=== PATIENT | male | born 1960 | race Caucasian/White ===

== ENCOUNTER 2019-02-08 07:33 | Day surgery (SDC) | payer OTHER ==
[2019-02-08] MEDS ORDERED: PROPOFOL 200 MG/20 ML VIAL IV ONE (08:48)
[2019-02-08] MEDS ORDERED: LACTATED RINGERS 1,000 ML IV.SOLN IV ONE (08:48)
[2019-02-08] MEDS ORDERED: LIDOCAINE HCL 2% PF 100MG/5ML VIAL IJ ONE (08:48)
--- NOTE | 2019-02-18 13:03 | GI Report ---
OPERATIVE/PROCEDURE REPORT PATIENT NAME: LIMA GIFFORD DATE OF : 1960 CHART#: [id number] DATE OF PROCEDURE: 02/08/2019 REFERRING PHYSICIAN: Kaden Olson M.D. PROCEDURE PERFORMED: Surveillance colonoscopy. SURGEON: Livia Fleming M.D., JohnCBevPBev INDICATION FOR PROCEDURE: Surveillance colonoscopy. Previous polyps greater than 5 years ago. PROCEDURE MEDICATION: Propofol, as per Anesthesia. DESCRIPTION OF PROCEDURE: The Olympus video colonoscope was advanced into the rectum and slowly advanced all the way to the cecum. The appendiceal orifice, terminal ileum were normal. On slow withdrawal the cecum, ascending colon, transverse colon, no obvious intraluminal lesions were noted except when one got back to 75 cm in the distal transverse colon a 6 mm polyp was removed with electrocautery. The specimen was sent for pathology. There was no bleeding postpolypectomy and the polyp appeared to be completely removed. The remaining part of the descending colon and sigmoid no obvious intraluminal lesions were noted. Retroflexion in the rectum was normal. FINDINGS: Transverse colon polyp. RECOMMENDATIONS: 1. High fiber diet. 2. Consider relook at his colon within 5 years for surveillance, pending the pathology of the polyp. LIVIA FLEMING M.D., F.A.C.P. STACIE/rosa Job#: [id number] Cc: Kaden Olson M.D. [address] [place] [address] Sent via ] [email or web address]
== END 2019-02-08 10:00 ==
LOC: OPSURG 07:33
PROVIDERS: ATTEND Internal Medicine Gastroenterology
DX: Z12.11 Encounter for screening for malignant neoplasm of colon (principal); K63.5 Polyp of colon; Z86.010 Personal history of colon polyps
CPT/HCPCS: 45388; J2001; J2704; J7120